=== PATIENT | male | born 1940 | race Caucasian/White ===

== ENCOUNTER → 2018-06-12 | Outpatient (CLI) | payer MEDICARE ==
[2018-06-12 15:57] LABS: ALANINE AMINOTRANSFERASE 20 U/L (21-72); ALBUMIN 4.6 g/dL (3.5-5.0); ALKALINE PHOSPHATASE 75 U/L (38-126); ASPARTATE AMINO TRANSFERASE 22 U/L (17-59); BILIRUBIN,DIRECT 0.3 mg/dL (0.0-0.4); BILIRUBIN,TOTAL 0.5 mg/dL (0.2-1.3); CHOLESTEROL 158.99 mg/dL (0-200); TOTAL PROTEIN 7.8 g/dL (6.3-8.2); TRIGLYCERIDES 143 mg/dL (<150)
[2018-06-12 16:07] LABS: DIRECT LDL 95 mg/dL (<100)
== END ==
LOC: OD 14:31
PROVIDERS: ATTEND Specialist
DX: E03.9 Hypothyroidism, unspecified (principal); E78.5 Hyperlipidemia, unspecified; E66.3 Overweight; I10 Essential (primary) hypertension; I25.10 Atherosclerotic heart disease of native coronary artery without angina pectoris; I48.0 Paroxysmal atrial fibrillation; J44.9 Chronic obstructive pulmonary disease, unspecified; R01.1 Cardiac murmur, unspecified; Z95.1 Presence of aortocoronary bypass graft; Z79.899 Other long term (current) drug therapy
CPT/HCPCS: 36415; 80061; 80076

== ENCOUNTER 2020-07-01 14:07 | Emergency (ER) | payer MEDICARE ==
--- NOTE | 2020-07-01 17:57 | ER Document Report ---
Entered by KENYON JENKINS SCRIBE 07/01/20 1744 Acting as scribe for:SIMON THOMAS DO ED General - General Chief Complaint: Testicular Swelling Stated Complaint: TESTICULAR SWELLING Time Seen by Provider: 07/01/20 17:14 Primary Care Provider: MEGHANA RAMIREZ MD [ACTIVE STAFF] - Follow up as needed BENEDICTO TORRES MD [Primary Care Provider] - Follow up as needed Mode of Arrival: Medic Information source: Patient Notes: This 80 year old male patient presents to the emergency department today with complaints of scrotal swelling for the last month. He reports that he has no pain associated with this swelling. He states that this hernia does not ever completely go away but it does reduce in size. Patient denies any pain with urination but does mention that it is difficult to urinate due to the swelling of his scrotum. TRAVEL OUTSIDE OF THE [place] IN LAST 30 DAYS: No - Related Data Home Medications: Carvedilol, Amlodopine, Lisinopril, Atrovastatin, Amiodarone Past Medical History - General Information source: Patient - Social History Smoking Status: Former Smoker Cigarette use (# per day): No Frequency of alcohol use: None Lives with: Family Family History: Reviewed & Not Pertinent - Past Medical History Cardiac Medical History: Reports: Hx Coronary Artery Disease, Hx Hypercholesterolemia, Hx Hypertension Review of Systems - Review of Systems Constitutional: No symptoms reported EENT: No symptoms reported Cardiovascular: No symptoms reported Respiratory: No symptoms reported Gastrointestinal: No symptoms reported Genitourinary: No symptoms reported Male Genitourinary: See HPI, Other - scrotal swelling Musculoskeletal: No symptoms reported Skin: No symptoms reported Hematologic/Lymphatic: No symptoms reported Neurological/Psychological: No symptoms reported -: Yes All other systems reviewed and negative Physical Exam - Vital signs Vitals: Temp Pulse Resp BP Pulse Ox 98.1 F 91 18 148/73 H 96 07/01/20 14:13 07/01/20 14:13 07/01/20 14:13 07/01/20 14:13 07/01/20 14:13 - Notes Notes: Physical Exam: General: Alert, appears well. HEENT: Normocephalic. Atraumatic. PERRL. Extraocular movements intact. Oropharynx clear. Neck: Supple. Non-tender. Respiratory: No respiratory distress. Clear and equal breath sounds bilaterally. Cardiovascular: Regular rate and rhythm. Abdominal: Very large hernia with bowel sound heard, non-incarcerated. Hernia is non-tender. Normal Bowel Sounds. Back: No gross abnormalities. Extremities: Moves all four extremities. Upper extremities: Normal inspection. Normal ROM. Lower extremities: Normal inspection. No edema. Normal ROM. Neurological: Normal cognition. AAOx4. Normal speech. Psychological: Normal affect. Normal Mood. Skin: Warm. Dry. Normal color. Course - Re-evaluation Re-evalutation: 07/01/20 18:12 MDM 80 year old with inguinal/ scrotal swelling for a month. He has no pain. Concerned so called EMS. A hernia is present. Discussed getting in with General Surgery to have surgery and he expressed understanding. Incidental UTI noted. No symptoms. Will Rx with keflex - Vital Signs Vital signs: Temp Pulse Resp BP Pulse Ox 98.1 F 91 18 148/73 H 96 07/01/20 14:13 07/01/20 14:13 07/01/20 14:13 07/01/20 14:13 07/01/20 14:13 - Laboratory Results Laboratory Results Interpreted: 07/01/20 17:40 Urine Protein 100 H Urine Ketones 20 H Urine Blood SMALL H Urine Urobilinogen 4.0 H Leukocyte Esterase Rfl MODERATE H Critical Laboratory Results Reviewed: No Critical Results - Radiology Results Critical Radiology Results Reviewed: No Critical Results Discharge - Discharge Clinical Impression: Inguinal hernia of right side without obstruction or gangrene UTI (urinary tract infection) Qualifiers: Urinary tract infection type: site unspecified Hematuria presence: with hematuria Qualified Code(s): N39.0 - Urinary tract infection, site not specified; R31.9 - Hematuria, unspecified Condition: Stable Disposition: HOME, SELF-CARE Instructions: Hernia ([facility]) Additional Instructions: Rest, wear scrotal support. See your printed circuit board drafter for clearance and the surgeon to discuss surgery on this hernia. Please return here for pain, persistent vomiting, fever or other problems or concerns. You have been provided a perscription for a urinary tract infection. Referrals: BENEDICTO TORRES MD [Primary Care Provider] - Follow up as needed MEGHANA RAMIREZ MD [ACTIVE STAFF] - Follow up as needed I personally performed the services described in the documentation, reviewed and edited the documentation which was dictated to the scribe in my presence, and it accurately records my words and actions.
--- NOTE | 2020-07-01 18:05 | RADIOLOGY REPORT (SQ) ---
EXAM DESCRIPTION: U/S SCROTUM W/DOPPLER IMAGES COMPLETED DATE/TIME: 07/01/2020 5:49 pm REASON FOR STUDY: Testicular Swelling COMPARISON: None. TECHNIQUE: Static and realtime danielle scale imaging of the scrotum and testes. Selected color Doppler and spectral images recorded to document blood flow. LIMITATIONS: None. FINDINGS: RIGHT: TESTICLE: Normal size, 3 x 3 x 1 cm. Normal echotexture. Normal blood flow. No mass. EPIDIDYMIS: Normal. HYDROCELE OR VARICOCELE: No. HERNIA OR EXTRA-TESTICULAR MASS: Inguinal hernia extending into the scrotum. OTHER: No other significant finding. LEFT: TESTICLE: Normal size 4 x 3 x 1 cm. Normal echotexture. Normal blood flow. No mass. EPIDIDYMIS: Normal. HYDROCELE OR VARICOCELE: No. HERNIA OR EXTRA-TESTICULAR MASS: No. OTHER: No other significant finding. IMPRESSION: Normal testes. There appears to be a right inguinal hernia. TECHNICAL DOCUMENTATION: JOB ID: [id number] 2010 [employer]- All Rights Reserved Reading location - IP/workstation name: [email or web address]
[2020-07-01 18:29] LABS: APPEARANCE,URINE SLIGHTLY-CLOUDY; BILIRUBIN,URINE NEGATIVE (NEGATIVE); COLOR,URINE YELLOW; GLUCOSE, URINE NEGATIVE (NEGATIVE); KETONES,URINE 20 mg/dL (NEGATIVE); PROTEIN,URINE 100 mg/dL (NEGATIVE); URINE SPECIFIC GRAVITY 1.018
[2020-07-01] MEDS ORDERED: CEPHALEXIN 500 MG CAPSULE PO ONE (18:51)
[2020-07-01 19:05] VITALS: BP 134/70
== END 2020-07-01 19:08 | disposition home or self-care (01) ==
LOC: ER 14:07
DX: K40.90 Unilateral inguinal hernia, without obstruction or gangrene, not specified as recurrent (principal); N39.0 Urinary tract infection, site not specified; N50.89 Other specified disorders of the male genital organs; E78.00 Pure hypercholesterolemia, unspecified; I10 Essential (primary) hypertension; I25.10 Atherosclerotic heart disease of native coronary artery without angina pectoris
CPT/HCPCS: 99285; 36415; 87086; 81001; 76870; 93976; A9270

== ENCOUNTER 2020-07-13 11:05 | Emergency (ER) | payer MEDICARE ==
[2020-07-13 12:22] LABS: ABSOLUTE BASOPHILS # (AUTO) 0.1 10^3/uL (0.0-0.2); ABSOLUTE EOSINOPHILS # (AUTO) 0.2 10^3/uL (0.0-0.6); ABSOLUTE LYMPHOCYTES (AUTO) 1.1 10^3/uL (0.5-4.7); ABSOLUTE MONOCYTES (AUTO) 0.6 10^3/uL (0.1-1.4); ABSOLUTE NEUT (AUTO) 3.8 10^3/uL (1.7-8.2); BASOPHILS % (AUTO) 1.2 % (0-2); EOSINOPHILS % (AUTO) 3.4 % (0-6); HEMATOCRIT 46.1 % (37.9-51.0); HEMOGLOBIN 15.3 g/dL (13.5-17.0); LYMPHOCYTES % (AUTO) 19.2 % (13-45); MEAN CORPUSCULAR HEMOGLOBIN 31.3 pg (27.0-33.4); MEAN CORPUSCULAR HGB CONC 33.2 g/dL (32.0-36.0); MEAN CORPUSCULAR VOLUME 94 fl (80-97); MONOCYTES % (AUTO) 11.1 % (3-13); PLATELET COUNT 238 10^3/uL (150-450); RED BLOOD COUNT 4.88 10^6/uL (4.35-5.55); RED CELL DISTRIBUTION WIDTH 14.7 % (11.5-14.0); SEGMENTED NEUTROPHILS % (AUTO) 65.1 % (42-78); TOTAL CELLS COUNTED % (AUTO) 100 %; WHITE BLOOD COUNT 5.8 10^3/uL (4.0-10.5)
--- NOTE | 2020-07-13 12:29 | RADIOLOGY REPORT (SQ) ---
EXAM DESCRIPTION: CHEST SINGLE VIEW IMAGES COMPLETED DATE/TIME: 07/13/2020 12:17 pm REASON FOR STUDY: cad/multiple falls COMPARISON: None. EXAM PARAMETERS: NUMBER OF VIEWS: One view. TECHNIQUE: Single frontal radiographic view of the chest acquired. RADIATION DOSE: NA LIMITATIONS: None. FINDINGS: LUNGS AND PLEURA: 3 cm mass in the left apex. No effusions. MEDIASTINUM AND HILAR STRUCTURES: No masses. Contour normal. HEART AND VASCULAR STRUCTURES: Cardiomegaly. Normal vasculature. BONES: No acute findings. HARDWARE: CABG. OTHER: No other significant finding. IMPRESSION: Left apical lung mass. TECHNICAL DOCUMENTATION: JOB ID: [id number] 2010 [employer]- All Rights Reserved Reading location - IP/workstation name: [email or web address]
[2020-07-13 12:30] LABS: INTERNATIONAL RATION (INR) 1.17; PROTHROMBIN TIME 15.1 SEC (11.4-15.4)
[2020-07-13 12:39] LABS: ALBUMIN 4.6 g/dL (3.5-5.0); ALKALINE PHOSPHATASE 97 U/L (38-126); ANION GAP 10 (5-19); ASPARTATE AMINO TRANSFERASE 26 U/L (17-59); BILIRUBIN,DIRECT 0.2 mg/dL (0.0-0.4); BILIRUBIN,TOTAL 0.8 mg/dL (0.2-1.3); BLOOD UREA NITROGEN 22 mg/dL (7-20); CALCIUM 9.8 mg/dL (8.4-10.2); CARBON DIOXIDE 28 mmol/L (22-30); CHLORIDE 104 mmol/L (98-107); CREATINE KINASE 93 U/L (55-170); GLUCOSE 99 mg/dL (75-110); POTASSIUM 4.2 mmol/L (3.6-5.0); TOTAL PROTEIN 8.3 g/dL (6.3-8.2)
[2020-07-13 12:51] LABS: NT PRO BNP 904 pg/mL (<450); TROPONIN I < 0.012 ng/mL
--- NOTE | 2020-07-13 13:02 | RADIOLOGY REPORT (SQ) ---
EXAM DESCRIPTION: CT HEAD WITHOUT IMAGES COMPLETED DATE/TIME: 07/13/2020 9:38 am REASON FOR STUDY: Multiple falls COMPARISON: None. TECHNIQUE: Axial images acquired through the brain without intravenous contrast. Images reviewed wi th bone, brain and subdural windows. Additional sagittal and coronal reconstructions were generated. Images stored on PACS. All CT scanners at this facility use dose modulation, iterative reconstruction, and/or weight based d osing when appropriate to reduce radiation dose to as low as reasonably achievable (ALARA). [facility]: Dose Right [facility]: CareDose [facility]: Dose Right [facility]: Teradose 4D [facility]: Smart [employer] RADIATION DOSE: CT Rad equipment meets quality standard of care and radiation dose reduction techniq ues were employed. CTDIvol: 48.9 mGy. DLP: 910 mGy-cm. mGy. LIMITATIONS: None. FINDINGS: VENTRICLES: Normal size and contour. CEREBRUM: There is a 2.2 x 1.3 x 1.8 cm mass in the superomedial right frontal lobe with relative per ipheral hyperdensity and central hypoattenuation. Large amount of adjacent edema with effacement of the sulci. No significant midline shift or herniation. Some mild background chronic small vessel isc hemic changes. No acute hemorrhage identified. CEREBELLUM: No masses. No hemorrhage. No alteration of density. No evidence for acute infarction. EXTRAAXIAL SPACES: No fluid collections. No masses. ORBITS AND GLOBE: No intra- or extraconal masses. Normal contour of globe without masses. CALVARIUM: No fracture. PARANASAL SINUSES: No fluid or mucosal thickening. SOFT TISSUES: No mass or hematoma. OTHER: No other significant finding. IMPRESSION: 1. Superior right frontal lobe mass with large amount of adjacent edema. 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 2. No significant midline shift or herniation. 3. No acute intracranial hemorrhage. EVIDENCE OF ACUTE STROKE: NO. COMMENT: Pertinent findings on the imaging study reported as a CRITICAL RESULT to JORGE DENG MD at09:52 [place] time on 07/13/2020. Category of Critical Result: Intracranial mass suspicious for metastatic disease Quality ID # 436: Final reports with documentation of one or more dose reduction techniques (e.g., Au tomated exposure control, adjustment of the mA and/or kV according to patient size, use of iterative reconstruction technique) TECHNICAL DOCUMENTATION: JOB ID: [id number] 2010 [employer]- All Rights Reserved Reading location - IP/workstation name: [email or web address]
--- NOTE | 2020-07-13 17:56 | EKG REPORT ---
SEVERITY:- ABNORMAL ECG - SINUS OR ECTOPIC ATRIAL RHYTHM NONSPECIFIC IVCD WITH LAD : Confirmed by: Jhony Snyder MD 13-Jul-2020 17:55:27
--- NOTE | 2020-07-13 18:21 | RADIOLOGY REPORT (SQ) ---
EXAM DESCRIPTION: CT CHEST WITH; CT ABD/PELVIS WITH IV ORAL IMAGES COMPLETED DATE/TIME: 07/13/2020 6:05 pm REASON FOR STUDY: lung mass; abd pain/scrotal herniation COMPARISON: Chest films from today. Scrotal ultrasound from 07/01/2020 CONTRAST TYPE AND DOSE: contrast/concentration: Isovue 350.00 mmol/ml; Total Contrast Delivered: 99. 0 ml; Total Saline Delivered: 43.5 ml RENAL FUNCTION: Not provided. TECHNIQUE: CT scan of the chest performed using helical scanning technique with dynamic intravenous contrast injection. Images reviewed with lung, soft tissue and bone windows. Reconstructed coronal a nd sagittal MPR images reviewed. All images stored on PACS. CT scan of the abdomen and pelvis performed with intravenous and with oral contrastusing helical scan yamil technique with dynamic intravenous contrast injection. Images reviewed with lung, soft tissue a nd bone windows. Reconstructed coronal and sagittal MPR images reviewed. Delayed images for evaluat ion of the urinary system also acquired and evaluated. All images stored on PACS. All CT scanners at this facility use dose modulation, iterative reconstruction, and/or weight based d osing when appropriate to reduce radiation dose to as low as reasonably achievable (ALARA). [facility]: Dose Right [facility]: CareDose [facility]: Dose Right [facility]: Teradose 4D [facility]: Smart [employer] RADIATION DOSE: CT Rad equipment meets quality standard of care and radiation dose reduction techniq ues were employed. CTDIvol: 8.8 - 13.2 mGy. DLP: 1911 mGy-cm. . LIMITATIONS: None. FINDINGS: CHEST: LUNGS AND PLEURA: Left upper lobe mass abuts the mediastinum and measures up to 5.5 x 3.2 cm in the t ransverse plane. No clear evidence of aggressive mediastinal invasion. Mild patchy peripheral groun d-glass opacities surrounding the main mass. Left lung otherwise clear. Motion artifact, right lung relatively clear. Minimal right upper lobe subpleural ground-glass density measures 1.6 cm, image 2 0. This is entirely nonspecific. HILAR AND MEDIASTINAL STRUCTURES: Small nodes, not enlarged. Otherwise normal. HEART AND VASCULAR STRUCTURES: Cardiomegaly. Previous CABG. No central pulmonary embolus. No aorti c aneurysm or dissection. HARDWARE: None. THYROID AND OTHER SOFT TISSUES: Mild thyromegaly without discrete mass. No chest wall or axillary ad enopathy. BONES: No significant finding. OTHER: No other significant finding. ABDOMEN AND PELVIS: LIVER: Normal size. No masses. No dilated ducts. SPLEEN: Normal size. No focal lesions. PANCREAS: No masses. No significant calcifications. No adjacent inflammation or peripancreatic fluid collections. Pancreatic duct not dilated. GALLBLADDER: Cholelithiasis. ADRENAL GLANDS: No significant masses or asymmetry. RIGHT KIDNEY AND URETER: Nonobstructive lower pole nephrolithiasis. LEFT KIDNEY AND URETER: Scattered cysts. AORTA AND VESSELS: Atherosclerotic aorta without aneurysm or dissection. Patent major arterial branc hes. No venous clot detected. RETROPERITONEUM: No retroperitoneal adenopathy, hemorrhage or masses. BOWEL AND PERITONEAL CAVITY: Mild-moderate stool. No evidence of mechanical bowel obstruction or act teresa inflammatory process. Distal colonic diverticular disease. No ascites or abnormal gas. APPENDIX: Not seen. ABDOMINAL WALL: Large left inguinal and scrotal hernia contains fat, numerous loops of small bowel an d a portion of large bowel. No inflammatory changes or fluid in the sac. Mild fat containing right inguinal hernia also noted. PELVIS: As above. Prostate enlargement. Bladder unremarkable. BONES: Osteopenic without fracture or bone lesion. OTHER: No other significant finding. IMPRESSION: 1. Left apical lung mass is confirmed by CT and should be considered malignancy until proven otherwis e. Other thoracic findings as noted. 2. Note suggestion of abdominopelvic metastatic disease. Large inguinal/scrotal hernia containing leann wel. 3. Other thoracic and abdominopelvic findings as described. TECHNICAL DOCUMENTATION: JOB ID: [id number] Quality ID # [id number]: Final reports with documentation of one or more dose reduction techniques (e.g., Au tomated exposure control, adjustment of the mA and/or kV according to patient size, use of iterative reconstruction technique) 2010 [employer]- All Rights Reserved Reading location - IP/workstation name: [email or web address]
[2020-07-13] MEDS ORDERED: DEXAMETHASONE 4 MG TABLET PO ONE (19:45)
[2020-07-13] MEDS ORDERED: DEXTROSE 5%-1/2 NORMAL SALINE 1,000 ML IV ONE (21:29)
[2020-07-14 02:15] VITALS: BP 132/81
--- NOTE | 2020-07-15 07:35 | ER Document Report ---
Entered by ELMER STALLINGS SCRIBE 07/13/20 1203 Acting as scribe for:JORGE DENG MD ED General - General Information source: Patient TRAVEL OUTSIDE OF THE [place] IN LAST 30 DAYS: No <JORGE DENG - Last Filed: 07/13/20 22:53> <YAMILE SAMUELS IV - Last Filed: 07/14/20 01:57> - General Chief Complaint: Testicular Swelling Stated Complaint: TESTICULAR SWELLING Time Seen by Provider: 07/13/20 11:45 Primary Care Provider: BENEDICTO TORRES MD [Primary Care Provider] - Follow up as needed Notes: This 80 year old male patient presents to the emergency department today with complaints of scrotal swelling. Per [facility] records, he was seen around 12 days ago for scrotal swelling and diagnosed with a right inguinal hernia without obstruction or gangrene, and a UTI. Patient states it is a left inguinal hernia and has grown in size. Patient states he was referred to surgery but has not followed up because he is scared to leave his alone at home. Patient states he cannot walk, but shuffles, and has been losing vision in his right eye for months. Patient reports multiple falls the past few weeks. Denies history of CHF, DM, or stroke. Patient reports triple bypass in 1974. Denies loss of ap petite, trouble with bowel movement, cough, sore throat, shortness of breath, chest pain, or neck pain. (JORGE DENG) - Related Data Allergies/Adverse Reactions: No Known Allergies Allergy (Verified 07/13/20 12:06) Past Medical History - General Information source: Patient - Social History Smoking Status: Former Smoker Cigarette use (# per day): No Lives with: Family Family History: Reviewed & Not Pertinent - Past Medical History Cardiac Medical History: Reports: Hx Coronary Artery Disease, Hx Hyperc holesterolemia, Hx Hypertension Denies: Hx Congestive Heart Failure Neurological Medical History: Denies: Hx Cerebrovascular Accident Endocrine Medical History: Denies: Hx Diabetes Mellitus Type 1, Hx Diabetes Mellitus Type 2 Past Surgical History: Reports: Hx Coronary Artery Bypass Graft - triple bypass 1974 <JORGE DENG - Last Filed: 07/13/20 22:53> Review of Systems - Review of Systems Constitutional: No symptoms reported EENT: See HPI. denies: Throat pain Cardiovascular: See HPI. denies: Chest pain Respiratory: See HPI. denies: Cough, Short of breath Gastrointestinal: See HPI. denies: Poor appetite, Other - trouble with bowel movement Genitourinary: No symptoms reported Male Genitourinary: See HPI, Other - scrotal swelling Musculoskeletal: See HPI. denies: Neck pain Skin: No symptoms reported Hematologic/Lymphatic: No symptoms reported Neurological/Psychological: See HPI, Gait changes, Other - R eye vision changes -: Yes All other systems reviewed and negative <JOREG DENG - Last Filed: 07/13/20 22:53> Physical Exam - General General appearance: Alert - HEENT Head: Normocephalic, Atraumatic Eyes: Normal Pupils: PERRL Neck: Normal, Supple - Respiratory Respiratory status: No respiratory distress Chest status: Nontender Breath sounds: Normal Chest palpation: Normal - Cardiovascular Rhythm: Regular Heart sounds: Normal auscultation Murmur: No - Extremities General upper extremity: Normal inspection, Normal ROM General lower extremity: Normal inspection, Normal ROM. No: Edema - Neurological Neuro grossly intact: Yes Cognition: Normal Orientation: AAOx4 Bonny Coma Scale Eye Opening: Spontaneous Morrison Coma Scale Verbal: Oriented Morrison Coma Scale Motor: Obeys Commands Morrison Coma Scale Total: 15 Speech: Normal Sensory: Normal - Psychological Associated symptoms: Normal affect, Normal mood - Skin Skin Temperature: Warm Skin Moisture: Dry Skin Color: Normal <JORGE DENG - Last Filed: 07/13/20 22:53> - Vital signs Vitals: Temp Pulse Resp BP Pulse Ox 97.9 F 93 19 145/70 H 91 L 07/13/20 11:17 07/13/20 11:17 07/13/20 11:17 07/13/20 11:17 07/13/20 11:17 - Abdominal Notes: Very large inguinal hernia extending into the scrotum. Normal active bowel sounds. (JORGE DENG) - Genitourinary Notes: Arrived in a diaper. Very large scrotum. Tenderness with palpation. Skin is warm to touch. (JORGE DENG) - Neurological Notes: 4+ equal tail sawyer strength bilaterally. Normal strength of bilateral lower extremi ties with straight leg raise. (JORGE DENG) Course - Laboratory Results Result Diagrams: 07/13/20 12:03 07/13/20 12:03 Critical Laboratory Results Reviewed: No Critical Results - Radiology Results Critical Radiology Results Reviewed: Yes Attending or Supervising Physician who Reviewed Radiology: JORGE DENG <JORGE DENG - Last Filed: 07/13/20 22:53> - Laboratory Results Result Diagrams: 07/13/20 12:03 07/13/20 12:03 - Consults Dr. Mushtaq Fisher, [facility] Time consulted: 00:50 - Dr. Fisher accepted pt for transfer to his facility <YAMILE SAMUELS IV - Last Filed: 07/14/20 01:57> - Re-evaluation Re-evalutation: 07/13/20 22:53 Patient resting comfortably in bed not showing any signs of distress. Patient has been lying in bed and not challenged to walk today inasmuch as he has ataxia of his left lower extremity and his left upper extremity 07/13/20 23:[address] Hendrickson tonsorial artist oncologist who reviewed CT scans and history with me and stated that it was appropriate to admit patient to the hospital locally because the work-up can be obtained in our hospital. I spoke with on-call hospitalist who disagreed and said we need to send patient to the hospital where there is a neurosurgeon available in case there was worsening vasogenic edema midline shift etc. with the brain right frontal mass present. I have called several hospitals including [facility] who is on limited transfers and limited to strokes MIs and MICU patients only at this time. Discussed case with [facility] who also is on medical limited transfers and from other hospitals due to lack of beds available and requires at this time MICU for stroke patients or cardiac patient is going straight to the [facility]. Discussed case with Violetta Kim she does not have neurosurgery backup. Discussed case with at [facility] and spoke to neurosurgeon as well the neurosurgeon said it did not think it was unreasonable to consider the patient's head status with some vasogenic edema. He also stated that with patient at 80 years old with some cortical brain atrophy that most likely there would not be a problem with the vasogenic edema treatment with [facility] however a recommended that the patient were to be accepted there would be by the hospitalist service and that the hospitalist service with consult neurosurgery and their work-up. Again discussed case with the hospitalist Dr. Penaloza and Dr. Penaloza stated that it was in her opinion it was not necessary to transfer patient because the work- up in our hospital could be completed which would be no different than the work- up in their hospital. And she did not agree that that you have to have neurosurgery backup for a nonemergent edema of the brain at this timE Again discussed case with tonsorial artist local hospitalist and [facility]R [facility] stated that he could not accept admission of this patient on the medical floor and therefore he was not admitting patient the patient (JORGE DENG) 07/14/20 01:54 This MD was notified that transport is here to take patient to [facility]. This MD went to the bedside. The patient is awake and alert x3 he is talking on his cell phone and appears to be in no acute distress. Patient appears stable for transport. (YAMILE SAMUELS IV) - Vital Signs Vital signs: Temp Pulse Resp BP Pulse Ox 98.7 F 76 18 139/78 H 98 07/13/20 18:57 07/13/20 18:57 07/13/20 18:57 07/13/20 18:57 07/13/20 18:57 07/13/20 22:55 Vital signs stable. (JORGE DENG) - Laboratory Results Laboratory Results Interpreted: 07/13/20 07/13/20 07/13/20 12:03 12:03 12:03 RDW 14.7 H BUN 22 H Est GFR (MDRD) Non-Af 59 L NT-Pro-B Natriuret Pep 904 H Total Protein 8.3 H - Radiology Results Radiology Results Interpreted: 07/13/20 22:56 Chest X-Ray 07/13/20 12:06 IMPRESSION: Left apical lung mass. Head CT 07/13/20 12:09 IMPRESSION: 1. Superior right frontal lobe mass with large amount of adjacent edema. Given presence of a left apical mass on chest x-ray, findings are most suggestive of intracranial metastatic lesion. 2. No significant midline shift or herniation. 3. No acute intracranial hemorrhage. EVIDENCE OF ACUTE STROKE: NO. Abdomen/Pelvis CT 07/13/20 15:00 IMPRESSION: 1. Left apical lung mass is confirmed by CT and should be considered malignancy until proven otherwise. Other thoracic findings as noted. 2. Note suggestion of abdominopelvic metastatic disease. Large inguinal/scrotal hernia containing bowel. 3. Other thoracic and abdominopelvic findings as described. Chest CT 07/13/20 15:00 IMPRESSION: 1. Left apical lung mass is confirmed by CT and should be considered malignancy until proven otherwise. Other thoracic findings as noted. 2. Note suggestion of abdominopelvic metastatic disease. Large inguinal/scrotal hernia containing bowel. 3. Other thoracic and abdominopelvic findings as described. Chest x-ray shows apical lung mass CT of the head shows the patient has chosen to leave the facility against medical advice. The relevant issues have been reviewed and discussed with the patient and family at the bedside. At the time of this assessment there is no indication for involuntary commitment. The patient is alert, oriented, and able to express clearly their reasoning for not wanting to remain in the emergency department for further treatment. The patient is not clinically psychotic, intoxicated, and denies and suicidal ideation. Differential or suspected diagnoses based on medical screening exam: . The patient is aware of the concerning diagnoses and acknowledges understanding of the reasons for the following recommendations: The following recommendations/services were offered and refused: The following risks were explained: , permanent disability, loss of function Clinical impression: Patient is competent to make decisions regarding the medical that is being offered. Right frontal lobe mass 1 x 2 x 1 cm with some vasogenic edema noted no intracranial hemorrhage no stroke CT scan of chest shows left apical lung mass considered to be malignancy CT scan of abdomen shows a large inguinal scrotal hernia containing bowel otherwise thoracic and abdominal pelvic findings insignificant CT scan of abdomen shows no evidence abdominal pelvic metastatic disease and a large inguinal scrotal hernia containing bowel without obstruction. (JORGE DENG) - EKG Interpretation by Me Additional EKG results interpreted by me: 07/13/20 22:59 Twelve-lead EKG shows normal sinus rhythm rate of 90 nonspecific intraventricular conduction delay with left axis deviation left ventricular hypertrophy with secondary repull abnormality anterior infarct age indeterminate left bundle branch block. GA interval within normal range QRS widening QT interval within normal range no evidence for an acute STEMI. (JORGE DENG) - Consults Dr. Mushtaq Fisher, [facility] Reason for consultation: 07/14/20 01:55 Right frontal lobe intracranial lesion with adjacent moderate amount of edema. (YAMILE SAMUELS IV) Discharge <JORGE DENG J - Last Filed: 07/13/20 22:53> <YAMILE SAMUELS IV - Last Filed: 07/14/20 01:57> - Discharge Clinical Impression: Pulmonary mass, Brain tumor, Multiple falls, Ataxia of left side upper and lower extr, Coronary artery disease Condition: Serious Disposition: [facility] Referrals: BENEDICTO TORRES MD [Primary Care Provider] - Follow up as needed I personally performed the services described in the documentation, reviewed and edited the documentation which was dictated to the scribe in my presence, and it accurately records my words and actions.
== END 2020-07-14 02:15 | disposition short-term general hospital (02) ==
LOC: ER 11:05
DX: D49.6 Neoplasm of unspecified behavior of brain (principal); G93.6 Cerebral edema; R91.8 Other nonspecific abnormal finding of lung field; K40.90 Unilateral inguinal hernia, without obstruction or gangrene, not specified as recurrent; G31.9 Degenerative disease of nervous system, unspecified; H54.61 Unqualified visual loss, right eye, normal vision left eye; R29.6 Repeated falls; R26.89 Other abnormalities of gait and mobility; I11.9 Hypertensive heart disease without heart failure; I44.7 Left bundle-branch block, unspecified; I25.10 Atherosclerotic heart disease of native coronary artery without angina pectoris; Z95.1 Presence of aortocoronary bypass graft; Z87.891 Personal history of nicotine dependence; Z20.822 Contact with and (suspected) exposure to COVID-19
CPT/HCPCS: 93005; 99285; 96360; 96361; 36415; 87040; 82550; 83605; 83690; 85025; 85610; 0241U ×4; 87077; 80053; 84484; 87186; 83880; 71045; 70450; 71260; 74177; 93010; A9270; C9803; J8540